=== PATIENT | male | born 1985 | race African-American/Black ===

== ENCOUNTER 2021-08-11 21:03 | Emergency (ER) | payer OTHER, SELFPAY ==
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
[2021-08-11 21:39] VITALS: BP 146/100; PULSE 75; RESP 18; TEMP 37; O2SAT 100
[2021-08-11 21:42] VITALS: PULSE 74
[2021-08-11 21:47] VITALS: BP 131/87; PULSE 80; RESP 18; O2SAT 100
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
[2021-08-11] MEDS: HYDROcodone/acetaminophen (*CRX) 5-325 MG TABLET 1 TAB PO (22:14)
[2021-08-12 00:19] VITALS: BP 127/87; PULSE 60; RESP 16; O2SAT 98
== END 2021-08-12 00:19 | disposition home or self-care (01) ==
PROVIDERS: Emergency Provider Emergency Medicine; PCP Emergency Medicine
DX: S41.032A Puncture wound without foreign body of left shoulder, initial encounter (principal); W27.2XXA Contact with scissors, initial encounter; X58.XXXA Exposure to other specified factors, initial encounter
CPT/HCPCS: 70450; 71046; 73030; 99284; A4565; A9270

== ENCOUNTER 2023-06-29 20:37 | Emergency (ER) | payer OTHER, SELFPAY ==
[2023-06-29 20:45] VITALS: BP 142/98; PULSE 88; RESP 18; TEMP 36.2; O2SAT 97
[2023-06-29 20:54] VITALS: O2SAT 98
[2023-06-29 21:29] LABS: Influenza A QL RT-PCR Negative (Negative); Influenza B QL RT-PCR Negative (Negative); RSV RNA, RT-PCR Negative (Negative); SARS-CoV-2 RNA PCR Negative (Negative)
[2023-06-29] MEDS: ACETAMINOPHEN 500 MG TABLET 1000 MG PO (22:41)
[2023-06-29] MEDS: IBUPROFEN 400 MG TABLET 800 MG PO (22:42)
--- NOTE | 2023-06-29 22:48 | ED.GENADULT ---
[facility] - General Adult General Chief complaint: Upper Respiratory Infection Stated complaint: chills, fever, aches, sore throat, cough Time Seen by Provider: 06/29/23 21:02 Source: patient Mode of arrival: ambulatory Limitations: no limitations History of Present Illness [facility] narrative: The this is a 37-year-old male who presents to the ED for chief complaint of URI symptoms for the past 2 days. Sources subjective fevers, chills, body aches, sore throat cough. Denies productive cough. Denies chest pain, shortness of breath, abdominal pain, nausea, vomiting. Related Data Allergies Allergy/AdvReac Type Severity Reaction Status Date / Time No Known Allergies Allergy Unknown Unverified 09/25/13 06:51 Review of Systems Review of Systems: All systems as dictated in [facility] Past Medical History Medical History (Updated 06/30/23 @ 00:01 by Ayaz Liu) No active medical problems Social History Social History (Updated 08/11/21 @ 21:50 by Amirah Malagon PA-C) Smoking status: Never smoker Exam Narrative: GENERAL: Well-appearing, well-nourished, and in no acute distress. HEAD: Normocephalic, atraumatic. EYES: PERRLA and EOMI. ENT: Nares clear, no rhinorrhea or epistaxis. Mucous membranes moist. Oropharynx without tonsillar hypertrophy exudate or other lesions. NECK: Supple. No adenopathy or masses. CHEST: No respiratory distress. Clear to auscultation. No wheezes rales or rhonchi HEART: Regular rate and rhythm. No murmur heard. Normal peripheral pulses. ABDOMEN: Soft, nontender, nondistended, normal active bowel sounds. MSK: Normal range of motion. No edema. SKIN: Warm, dry, no rash. NEURO: Alert and oriented x3. No focal deficits. PSYCH: Normal mood and affect. Course Vital Signs Vital signs: Vital Signs Temperature 97.1 F L 06/29/23 20:45 Pulse Rate 88 06/29/23 20:45 Respiratory Rate 18 06/29/23 20:45 Blood Pressure 142/98 H 06/29/23 20:45 Pulse Oximetry 97 06/29/23 20:45 Temperature 97.0 F L 06/29/23 23:05 Pulse Rate 80 06/29/23 23:05 Respiratory Rate 17 06/29/23 23:05 Blood Pressure 138/72 06/29/23 23:05 Pulse Oximetry 99 06/29/23 23:05 Oxygen Delivery Room Air 06/29/23 20:[address] [facility] Narrative Medical decision making narrative: This 37 M patient presents with symptoms suspicious for likely viral upper respiratory infection. Differential includes bacterial pneumonia, sinusitis, allergic rhinitis. Do not suspect underlying cardiopulmonary process. I considered, but think unlikely, dangerous causes of this patient?s symptoms to include ACS, CHF or COPD exacerbations, pneumonia, pneumothorax. Patient is nontoxic appearing and not in need of emergent medical intervention. Plan: reassurance, reassessment, over the counter medications, discharge with PCP followup Vital Signs Vital Signs: Vital Signs Temperature 97.1 F L 06/29/23 20:45 Pulse Rate 88 06/29/23 20:45 Respiratory Rate 18 06/29/23 20:45 Blood Pressure 142/98 H 06/29/23 20:45 Pulse Oximetry 97 06/29/23 20:45 Temperature 97.0 F L 06/29/23 23:05 Pulse Rate 80 06/29/23 23:05 Respiratory Rate 17 06/29/23 23:05 Blood Pressure 138/72 06/29/23 23:05 Pulse Oximetry 99 06/29/23 23:05 Oxygen Delivery Room Air 06/29/23 20:54 Lab Data Labs: Lab Results 06/29/23 Range/Units 20:47 Influenza A (RT-PCR) Negative (Negative) Influenza B (RT-PCR) Negative (Negative) RSV (RT-PCR) Negative (Negative) SARS-CoV-2 RNA (RT-PCR) Negative (Negative) Discharge Plan Discharge Clinical Impression: Upper respiratory infection Patient Disposition: Home, Self-Care Condition: Stable Instructions: Antibiotic Form, Viral Syndrome (ED) Additional Instructions: Your exam today is overall reassuring. You probably have an upper respiratory virus. This should clear out of your system in the next 7 days. Us
[2023-06-29 23:05] VITALS: BP 138/72; PULSE 80; RESP 17; TEMP 36.1; O2SAT 99
== END 2023-06-29 23:07 | disposition home or self-care (01) ==
PROVIDERS: Emergency Medicine; Emergency Provider Physician Assistant
DX: J06.9 Acute upper respiratory infection, unspecified (principal); Z20.822 Contact with and (suspected) exposure to COVID-19
CPT/HCPCS: 87637; 99283; A9270

== ENCOUNTER 2024-01-16 11:34 | Emergency (ER) | payer MEDICAID, SELFPAY ==
--- NOTE | 2024-01-16 11:35 | ED.URI ---
HPI - URI/Sore Throat General Chief Complaint: Nausea/Vomiting/Diarrhea Stated Complaint: diarrhea,sweats,dizzy,TAPIA Time Seen by Provider: 01/16/24 12:23 Source: patient and RN notes reviewed Mode of arrival: ambulatory Limitations: no limitations History of Present Illness HPI Narrative: 38-year-old male presents with concern for diarrhea, nausea, 1 episode of vomiting, headache, feeling dizzy, sore throat, runny nose. Reports symptoms started 2 days ago. Reports he is having diarrhea 4 to 7 times a day. Reports he is eating and drinking. He denies known sick contacts MD elicited complaint: sore throat and other (Vomiting and diarrhea) Related Data Allergies Allergy/AdvReac Type Severity Reaction Status Date / Time No Known Allergies Allergy Unknown Verified 01/16/24 11:38 Review of Systems Review of Systems: CONSTITUTIONAL: Reports malaise. Denies chills, sweats, or fever. EYES: Denies visual changes, redness, or discharge. ENT: Reports rhinorrhea, congestion, and sore throat. CARDIOVASCULAR: Denies chest pain, palpitations, or edema. RESPIRATORY: Reports cough. Denies dyspnea. GASTROINTESTINAL: Denies abdominal pain. Reports nausea, vomiting, diarrhea SKIN: Denies rash or itching. MUSCULOSKELETAL: Denies myalgia. NEUROLOGIC: Reports headache. All systems reviewed & are unremarkable except as noted in HPI and below PMFSH Past Medical History Medical History (Updated 01/16/24 @ 12:44 by Bev Branham NP) No active medical problems Social History Social History (Updated 08/11/21 @ 21:50 by Amirah Malagon PA-C) Smoking status: Never smoker Comments At time of signature, agree with nursing past medical, surgical, social and family history. There is no relevant family history pertinent to the presenting complaint Exam Narrative: GENERAL: Nontoxic-appearing, well-nourished, and in no acute distress. HEAD: Normocephalic EYES: PERRLA, conjunctivae clear ENT: Nares clear. Mucous membranes moist. TM pearly españa with dull light reflex bilaterally; no tragal tenderness. Oropharynx not erythematous without lesions. Tonsils not enlarged and without exudate, no drooling, no hoarseness, no trismus, uvula midline. NECK: Supple. No lymphadenopathy CHEST: Clear to auscultation, breath sounds equal. No wheezing, rhonchi, rales, or stridor. No respiratory distress, speaks in full sentences. HEART: Regular rate and rhythm. No murmur heard. SKIN: Warm, dry, no rash. NEURO: Alert and oriented x3. PSYCH: Normal mood and affect Course Course Emergency Course: Patient is aware of diagnosis, understands and agrees to treatment plan. Anticipatory guidance given. Patient agrees to follow-up as directed and is aware of reasons to seek care at the emergency department. Portions of this record may have been created with voice recognition software Level of Care: Express Care Visit Vital Signs Vital signs: Vital Signs Temperature 97.9 F 01/16/24 11:49 Pulse Rate 61 01/16/24 11:49 Blood Pressure 125/87 01/16/24 11:49 Temperature 97.9 F 01/16/24 11:49 Pulse Rate 61 01/16/24 11:49 Blood Pressure 125/87 01/16/24 11:49 Reviewed. MDM - URI/Sore Throat MDM Narrative Medical decision making narrative: Differential diagnosis considered: Alberto virus, strep pharyngitis, allergic rhinitis, upper respiratory tract infection, sinusitis, rhinosinusitis, nasopharyngitis. viral pharyngitis, otitis media, otitis externa, pneumonia, bronchitis, viral cough syndrome, viral syndrome, and influenza. Exam findings show no acute concerns or changes; patient is non-toxic appearing and is in no distress. Patient is appropriate for outpatient treatment and follow-up. Lab Data Attestation: I reviewed the patient's lab results. Labs: Lab Results 01/16/24 01/16/24 Range/Units 12:22 12:30 POC Influenza A Ag Negative (Negative) POC Influenza B Ag Negative (Negative) POC SARS CoV-2 Ag Neg
[2024-01-16 11:49] VITALS: BP 125/87; PULSE 61; TEMP 36.6
[2024-01-16 14:31] LABS: EDCOVIDSCREEN Negative (Negative); EDINFLUASCREEN Negative (Negative); EDINFLUBSCREEN Negative (Negative)
[2024-01-16 14:31] LABS: EDSTREPNEGPOS1 Negative (Negative)
== END 2024-01-16 12:55 | disposition home or self-care (01) ==
PROVIDERS: Emergency Provider Nurse Practitioner
DX: B34.9 Viral infection, unspecified (principal); Z20.822 Contact with and (suspected) exposure to COVID-19
CPT/HCPCS: 87081; 87426; 87804; 87880; 99213; G0463

== ENCOUNTER 2024-08-23 23:45 | Emergency (ER) | payer MEDICAID, SELFPAY ==
--- NOTE | ~2024-08-23 | US_ITS ---
Testicular ultrasound with doppler. Indication: Testicular pain. Technique: Real-time sonography the scrotum was performed. Color flow Doppler and Doppler spectral an alysis were performed. Findings: The testes are homogeneous in echotexture bilaterally. There is no evidence of an intrates ticular mass. The right testis measures 4.4 x 2.2 x 2.9 cm and the left 3.5 x 2.3 x 3.1 cm. There is color-flow seen to both testes. Arterial and venous spectral waveforms are seen in both testes. There is no sonographic evidence of torsion. There is relative hypervascularity of the left testis an epid idymis as compared to the right, compatible with epididymoorchitis. Impression: Findings compatible with left epididymoorchitis. No evidence for torsion or mass. Reviewed, dictated and finalized at [facility]. Impression: Findings compatible with left epididymoorchitis. No evidence for torsion or mass.
--- OUTSIDE RECORDS SUMMARY | 2024-08-23 23:48 | XMS_ITS | Clinical Summary ---
Author Organization [facility] Address [address] [place] [address] Care Team Providers Care Geological Specialist Name Role Phone Can Gongora NP Primary Care Provider [phone]- [phone] Allergies No known active allergies Medications diazePAM (VALIUM) 10 mg tablet Take 1 tablet (10 mg total) by mouth once as needed for anxiety Take 30 minutes prior to anticipated procedure. 1 tablet 5 Active ibuprofen (ADVIL,MOTRIN) 600 mg tablet Take 1 tablet (600 mg total) by mouth every 8 (eight) hours as needed for pain 20 tablet 1 5 Active oxyCODONE (ROXICODONE) 5 mg immediate release tabletIndicatio ns:Pain Take 1 tablet (5 mg total) by mouth every 8 (eight) hours as needed for pain 5 tablet 5 Active Active Problems Problem Noted Date Diagnosed Date Vasectomy evaluation 06/04/2024 Overview (07/16/2024): 06/04/24: NC. Vasectomy evaluation. 07/16/24: RP. Vasectomy. Encounters Date Type Department Care Team Description 07/16/2024 3:00 PM CDT Office Visit [facility] U[facility] Medical Office Building [address] [place] [address] Damir Mcguire MD Vasectomy evaluation (Primary Dx) 06/04/2024 10:00 AM CONSTRUCTION PERSON Office Visit [facility] Urology [address] [facility] Medical Office Building [address] [place] [address] Damir Mcguire MD Vasectomy evaluation (Primary Dx) from Last 3 Months Social History Tobacco Use Types Packs/Day Years Used Date Smoking Tobacco: Unknown Tobacco Cessation:Counseling Given: Not Answered Sex and Gender Information Value Date Recorded Sex Assigned at Not on file Legal Sex Male 4:52 PM CONSTRUCTION PERSON Gender Identity Not on file Sexual Orientation Not on file Obstetrics History Plan of Treatment Health Maintenance Due Date Last Done Comments Depression Screening 1987 Hepatitis C Screening 1987 DTaP/Tdap/Td Vaccine (1 - Tdap) 07/13/2000 1 Varicella Vaccines (2 of 2 - 2-dose childhood series) 10/04/2000 07/12/2000 Hepatitis B Screening 08/27/2005 Regular Well Visit/Exam 18-64 08/27/2005 Influenza Vaccine (#1) 2023 HPV Vaccines Aged Out No longer eligi ble based on patient's age to complete this topic Pneumococcal vaccine <65 Aged Out No longer eligible based on patient's age to complete this [place] [address] [place] [address] [facility] [place] [address] [place] [address] Care Teams Geological Specialist Relationship Specialty Start Date End Date Can Gongora NP [address] [place] [address] PCP - General Pain Management 04/24/24
--- OUTSIDE RECORDS SUMMARY | 2024-08-23 23:48 | XMS_ITS | Referral Summary ---
Author Organization [facility] Address [address] [place] [id number] Care Team Providers Care Milk Route Supervisor Name Role Phone Can Gongora NP Primary Care Provider +1- [phone] Encounters Date Type Department Care Team Description 07/16/2024 3:00 PM CDT Office Visit [facility] Urology [address] [place] [address] Medical Office Building [address] [address] Damir Mcguire MD Vasectomy evaluation (Primary Dx) 06/04/2024 10:00 AM SYSTEM CONTROLLER Office Visit [facility] Urology [address] [place] [address] [address] Damir Mcguire MD Vasectomy evaluation (Primary Dx) from Last 3 Months Allergies No known active allergies Medications diazePAM [...] 06/04/24: NC. Vasectomy evaluation. 07/16/24: RP. Vasectomy. Social History Tobacco Use Types Packs/Day Years Used Date Smoking Tobacco: Unknown Tobacco Cessation:Counseling Given: Not Answered Sex and Gender Information Value Date Recorded Sex Assigned at Not on file Legal Sex Male 4:52 PM SYSTEM CONTROLLER Gender Identity Not on file Sexual Orientation Not on file Plan of Treatment Not on [place] [address] [address] [facility] [place] [address] Care Teams Milk Route Supervisor Relationship Specialty Start Date End Date Can Gongora NP [address] [place] [address] [place] [address] PCP - General Pain Management 04/24/24
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
--- OUTSIDE RECORDS SUMMARY | 2024-08-23 23:48 | XMS_ITS | Patient Health Record ---
Author Organization [facility] Address [address] [place] [address] Care Team Providers Care Client Service Executive Name Role Phone Can Gongora Primary Care Provider Remington Sneed [phone] Allergies No Known Allergies Results Component Value Reference Range Notes CMP 14 Comprehensive Metabol ic Panel* Reviewed date:12/28/2023 11:44:50 AM Interpretation: Performing Lab:[facility] [place], [address] [facility], [place], Phone - [phone], Director - Ricdee Notes/Report: Glucose 106 70-99 mg/dL BUN 14 6-20 mg/dL Creatinine 1.01 0.76-1.27 mg/dL eGFR 99 >59 mL/min/1.73 BUN/Creatinine Ratio 14 9-20 Sodium 138 134-144 mmol/L Potassium 4.5 3.5-5.2 mmol/L Chloride 100 96-106 mmol/L Carbon Dioxide, Total 23 20-29 mmol/L Calcium 10.1 8.7-10.2 mg/dL Protein, Total 7.9 6.0-8.5 g/dL Albumin 4.8 4.1-5.1 g/dL Globulin, Total 3.1 1.5-4.5 g/dL Bilirubin, Total 0.4 0.0-1.2 mg/dL Alkaline Phosphatase 96 44-121 IU/L AST (SGOT) 45 0-40 IU/L ALT (SGPT) 67 0-44 IU/L Lipid Panel* Reviewed date:12/28/2023 11:44:50 AM Interpretation: Performing Lab:[facility] [place], [address] [place] [address], Phone - [phone], Director - [facility] Notes/Report: Cholesterol, Total 237 100-199 mg/dL Triglycerides 124 0-149 mg/dL HDL Cholesterol 80 >39 mg/dL VLDL Cholesterol Lee 21 5-40 mg/dL LDL Chol Calc (NIH) 136 0-99 mg/dL TSH+Free T4* Reviewed date:12/28/2023 11:44:50 AM Interpretation: Performing Lab:[facility] [place], [address] [place] [address], Phone - [phone], Director - [facility] Notes/Report: TSH 1.730 0.450-4.500 uIU/mL T4,Free(Direct) 1.34 0.82-1.77 ng/dL CBC With Differential/Platel et* Reviewed date:12/28/2023 11:44:50 AM Interpretation: Performing Lab:[facility] [place], [address] [place] [address], Phone - [phone], Director - [facility] Notes/Report: WBC 6.6 3.4-10.8 x10E3/uL RBC 5.32 4.14-5.80 x10E6/uL Hemoglobin 15.4 13.0-17.7 g/dL Hematocrit 47.4 37.5-51.0 % MCV 89 79-97 fL MCH 28.9 26.6-33.0 pg MCHC 32.5 31.5-35.7 g/dL RDW 13.4 11.6-15.4 % Platelets 302 150-450 x10E3/uL Neutrophils 61 Not Estab. % Lymphs 29 Not Estab. % Monocytes 7 Not Estab. % Eos 2 Not Estab. % Basos 1 Not Estab. % Neutrophils (Absolute) 4.0 1.4-7.0 x10E3/uL Lymphs (Absolute) 1.9 0.7-3.1 x10E3/uL Monocytes(Absolute) 0.5 0.1-0.9 x10E3/uL Eos (Absolute) 0.1 0.0-0.4 x10E3/uL Baso (Absolute) 0.1 0.0-0.2 x10E3/uL Immature Granulocytes 0 Not Estab. % Immature Grans (Abs) 0.0 0.0-0.1 x10E3/uL Hemoglobin A1c* Reviewed date:12/28/2023 11:44:50 AM Interpretation: Performing Lab:[facility] [place], [address] [facility], Phone - [phone], Director - [facility] Notes/Report: Hemoglobin A1c 6.4 4.8-5.6 % . Prediabetes: 5.7 - 6.4 Diabetes: >6.4 Glycemic control for adults with diabetes: <7.0 HIV Screen *HIV 1, 2 Ab, p24 Ag (980354) Reviewed date:12/28/2023 11:44:50 AM Interpretation: Performing Lab:[facility] [place], [address] [facility], [place], Phone - [phone], Director - [facility] Notes/Report: HIV Ab/p24 Ag Screen Non Reactive Non Reactive HIV-1/HIV-2 antibodies and HIV-1 p24 antigen were NOT detected. There is no laboratory evidence of HIV infection. HIV Negative Hemoglobin A1c CLIA Waived Reviewed date:03/29/2024 01:09:21 PM Interpretation: Performing Lab: Notes/Report: Hemoglobin A1c 5.9 4.0 - 6.4 % Reason For Referral Reason Would like vasectomy Diagnosis 1 Screening and evalua tion for vasectomy (Z30.09) Referral Organization [facility] Referring Provider First Name Can Referring Provider Last Name Gongora Referring Provider [facility] Referred Provider [facility] Referred Provider Specialty Urology General Notes Pt has Simi., [place] Teri sherman RN 04/06/2024 11:39:05 AM >referral faxed to [facility] at the fax number provided by [facility] construction representativeTalya.Kelin RN, Stephanie N 04/06/2024 01:06:38 PM >fax failed. Referral refaxed.Kelin RN, Stephanie N 04/13/2024 09:08:48 AM >Fax number updated. Referral refaxed.Kelin RN, Stephanie N 04/13/2024 09:27:30 AM >Fax was successful. Letter mailed with referral details. Clinical Notes [facility] , [address], [address], [place] [address], , New Patients: [phone], Referral Referral Priority Routine Social History Tobacco Use: Social History Observation Description Date Details (start date - stop date) Never Smoker NA - NA Sex Assigned At : Social History Observation Description Sex Assigned At Male PRAPARE Question Answer Notes Date Completed/Updated: 08/07/2024 What is your current housing situation? I have h ousing Are you worried about losing your housing? No What is the highest level of school that you have finished? 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 Check all that apply I do not have problems meeting my needs Has lack of transportation k ept you from medical appointments, meetings, work or from getting things needed for daily living? No How often do you see or talk to people that you care about and feel close to? (For example: talking to friends on the phone, visiting friends or family, going to synagogue or club meetings) 1 or 2 times a week How stressed are you? Stress is when someone feels tense, nervous, anxious, or can\t sleep at night because their mind is troubled A little bit In the past year have you sp ent more than 2 nights in a row in a group home, custodial, senior living center, or juvenile correctional facility? No Are you a refugee? No What country are you from? [place] Do you feel physically and e motionally safe where you currently live? Yes In the past year, have you b een afraid of your partner or ex-partner? No PRAPARE Score: 6 Tobacco Control (Standard) Question Answer Notes Tobacco use: Nonsmoker Problems Problem Type SNOMED Code ICD Code Onset Dates Problem Status W/U Status Risk Notes Problem 861162255 Obesity (BMI 30-39.9) (E66.9) Active confirmed Vital Signs Heart Rate 67 /min 03/27/2024 Respiratory Rate 16 /min 03/27/2024 Blood pressure diastolic 70 mm Hg 03/27/2024 Oximetry 97 % 03/27/2024 Height 71 in 03/27/2024 Blood pressure systolic 128 mm Hg 03/27/2024 Weight 257 lbs 03/27/2024 BMI 35.84 kg/m2 03/27/2024 Encounters Encounter Location Date Provider Diagnosis [address] [address] 12/22/2023 Can Gongora Screening for HIV (human immunodeficiency virus) Z11.4 ; Screening for metabolic disorder Z13.228 ; Screening for deficiency anemia Z13.0 and Lipid screening Z13.[address] [address] 12/15/2023 Can Gongora Encounter to [facility] Z76.89 ; Screening for deficiency anemia Z13.0 ; Screening for metabolic disorder Z13.228 ; Screening for HIV (human immunodeficiency virus) Z11.4 ; Lipid screening Z13.220 ; Obesity (BMI 30-39.9) E66.9 and Nutritional counseling Z71.[address] [address] 12/22/2023 Can Gongora [address] [address] 03/27/2024 Can Gongora Screening and evaluation for vasectomy Z30.09 ; Prediabetes R73.03 ; Obesity (BMI 30-39.9) E66.9 and Nutritional counseling Z71.[address] [address] 03/27/2024 Can Gongora [address] [address] 04/27/2024 Can Gongora [address] [address] 07/12/2024 Remington Sneed [address] [address] 08/08/2024 Remington Sneed Assessments Encounter Date Diagnosis (ICD Code) Assessment Notes Treatment Notes Treatment Clinical Notes Section Notes 12/15/2023 Encounter to establish care (ICD-10 - Z76.89) 12/15/2023 Screening for deficiency anemia (ICD-10 - Z13.0) 12/22/2023 Screening for HIV (human immunodeficiency virus) (ICD-10 - Z11.4) 03/27/2024 Prediabetes (ICD-10 - R73.03) 03/27/2024 Screening and evaluation for vasectomy (ICD-10 - Z30.09) 12/15/2023 Screening for metabolic disorder (ICD-10 - Z13.228) 03/27/2024 Obesity (BMI 30-39.9) (ICD-10 - E66.9) 12/22/2023 Screening for metabolic disorder (ICD-10 - Z13.228) 12/22/2023 Screening for deficiency anemia (ICD-10 - Z13.0) 12/15/2023 Screening for HIV (human immunodeficiency virus) (ICD-10 - Z11.4) 03/27/2024 Nutritional counseling (ICD-10 - Z71.3) 12/15/2023 Lipid screening (ICD-10 - Z13.220) 12/22/2023 Lipid screening (ICD-10 - Z13.220) 12/15/2023 Obesity (BMI 30-39.9) (ICD-10 - E66.9) 12/15/2023 Nutritional counseling (ICD-10 - Z71.3) Plan Of Treatment No Information Insurance Providers Payer Name Payer Address Payer Phone Subscriber Number Group Number Insured Name Patient Relationship to Insured Coverage Start Date Coverage End Date MEDICAID [address] [place] [phone] [id number] Cj Massey Self - patient is the insured
[2024-08-23 23:50] VITALS: BP 134/74; PULSE 72; RESP 18; TEMP 36.8; O2SAT 99
--- OUTSIDE RECORDS SUMMARY | 2024-08-24 00:52 | XMS_ITS | Referral Summary ---
Author Organization [facility] Address [address] [place] [address] Care Team Providers Care Closer On Name Role Phone Can Gongora NP Primary Care Provider +1- [phone] Encounters Date Type Department Care Team Description 07/16/2024 3:00 PM CDT Office Visit [facility] Urology [address] [place] [address] Medical Office Building [address] [address] Damir Mcguire MD Vasectomy evaluation (Primary Dx) 06/04/2024 10:00 AM FEATHER BONER Office Visit [facility] Urology [address] [place] [address] [address] Damir Mcguire MD Vasectomy evaluation [...] on file Legal Sex Male 4:52 PM FEATHER BONER Gender Identity Not on file Sexual Orientation Not on file Plan of Treatment Not on [place] [id number] [facility] [place] [address] Care Teams Closer On Relationship Specialty Start Date End Date Can Gongora NP [address] [place] [address] [place] [address] PCP - General Pain Management 04/24/24
--- OUTSIDE RECORDS SUMMARY | 2024-08-24 00:52 | XMS_ITS | Clinical Summary ---
Author Organization [facility] Address [address] [place] [address] Care Team Providers Care Trim Stencil Maker Name Role Phone Can Gongora NP Primary Care Provider +1- [phone] Allergies No known active allergies Medications diazePAM [...] Description 07/16/2024 3:00 PM CDT Office Visit [facility] U[facility] Medical Office Building [address] [place] [address] Damir Mcguire MD Vasectomy evaluation (Primary Dx) 06/04/2024 10:00 AM GARMENT PARTS CUTTER MACHINE Office Visit [facility] Urology [address] [facility] Medical Office Building [address] [place] [address] Damir Mcguire MD Vasectomy evaluation (Primary Dx) from Last 3 Months Social History Tobacco Use Types Packs/Day Years Used Date Smoking Tobacco: Unknown Tobacco Cessation:Counseling Given: Not Answered Sex and Gender Information Value Date Recorded Sex Assigned at Not on file Legal Sex Male 4:52 PM GARMENT PARTS CUTTER MACHINE Gender Identity Not on file Sexual Orientation [...] complete this [place] [address] [facility] [place] [address] Care Teams Trim Stencil Maker Relationship Specialty Start Date End Date Can Gongora NP [address] [place] [address] PCP - General Pain Management 04/24/24
--- OUTSIDE RECORDS SUMMARY | 2024-08-24 00:52 | XMS_ITS | Continuity of Care Document ---
Author Organization [facility] Address [address] [place] [address] Phone Care Team Providers Care Vice President Of Talent Management Name Role Phone Felix Jo MD Unavailable Unavailable Allergies, Adverse Reactions, Alerts Substance Reaction Status Criticality No Known Allergies Active No Inform ation Procedures Procedure Date PREV VISIT, NEW, AGE 18-39 Advance Directives Directive Yes / No Effective Date File Name No Information Encounters Encounter Description Practice Location Reason(s) For Visit Diagnoses Date Provider Providers Copied on Encounter PREV VISIT, NEW, AGE 18-39 [facility], [address] [facility] [place], [id number], [place] tel:[phone] [facility] Physical (chief complaint) Dietary surveillance and counselingRoutine Medical ExamRoutine Medical Exam [address]. [address], [facility] [place], [id number] , [place]. tel:[phone] Family History Family Member Type Diagnosis Age At Onset Brother Problem (finding) Alive and well Mother Problem (finding) Alive and well Father Problem (finding) Alive and well Payers Payer name Insurance type Covered green party ID Authoriza tion(s) No Information Social [...] Mental Status Date Cognitive Assessment Orientation - [place] ed to time, place, person, situation.
[2024-08-24] MEDS: HYDROcodone/acetaminophen (*CRX) 5-325 MG TABLET 1 TAB PO (01:47)
[2024-08-24 02:07] LABS: Add Urine Microscopic? NO; Appearance Urine Clear (Clear); Bilirubin Urine Negative (Negative); Blood Urine Negative (Negative); Color Urine Yellow (Yellow); Glucose Urine UA Negative (Negative); Ketones Urine Trace mg/dL (Negative); Leukocyte Esterase Ur Negative LEU/UL (Negative); Nitrate Urine Negative (Negative); Protein Urine Negative (Negative); Specific Grav Ur 1.033 (1.001-1.035); pH Urine 5.5 (5.0-9.0)
[2024-08-24 03:00] VITALS: BP 138/64; PULSE 69; RESP 18; O2SAT 99
--- NOTE | 2024-08-24 03:20 | ED_ITS ---
HPI - Male Genitourinary General Chief complaint: Urogenital-Male Stated complaint: groin swelling Time Seen by Provider: 08/24/24 00:36 Source: patient Mode of arrival: ambulatory Limitations: no limitations History of Present Illness HPI Narrative: 38-year-old here with a complains of left testicular pain and swelling for past few days. Patient states the pain got worse this evening. He denies any trauma. Patient states that he had a vasectomy done a month ago in [place]. No history of fever or chills. Denies urinary symptoms. Complaint: testicle pain Onset (ago): day(s) (4) Location: left testicle Severity: moderate Quality: aching Relieving factors: none Exacerbating factors: none Associated symptoms: Reports denies other symptoms Related Data Allergies Allergy/AdvReac Type Severity Reaction Status Date / Time No Known Allergies Allergy Unknown Verified 08/24/24 00:42 Review of Systems Review of Systems: All systems reviewed & are unremarkable except as noted in HPI and below Constitutional: Constitutional: Reports no additional constitutional complaints Eyes: Eyes: Reports no additional eye complaints ENT: Reports system reviewed and no additional complaints, except as documented Cardiovascular: Cardiovascular: Reports no additional cardiovascular complai nts Respiratory: Respiratory: Reports no additional respiratory complaints Gastrointestinal: Gastrointestinal: Reports no additional gastrointestinal complaints Genitourinary: Genitourinary: Reports as per HPI Musculoskeletal: Musculoskeletal: Reports no additional musculoskeletal complaints Neurologic: Reports system reviewed and no additional complaints, except as documented PMFSH Past Medical History Medical History No active medical problems Social History Social History Smoking status: Never smoker Exam Narrative: GENERAL: Well-appearing, well-nourished, and in no acute distress. HEAD: Normocephalic, atraumatic. EYES: PERRLA and EOMI. ENT: Nares clear, no rhinorrhea or epistaxis. Mucous membranes moist. NECK: Supple. CHEST: Clear to auscultation. No respiratory distress. HEART: Regular rate and rhythm. No murmur heard. Normal peripheral pulses. ABDOMEN: Soft, nontender, nondistended, normal active bowel sounds. left testicle is soft , tender , Right is normal EXTREMITIES: Normal range of motion. No edema. SKIN: Warm, dry, no rash. NEURO: No focal deficits. Alert and oriented x3. PSYCH: Normal mood and affect. Course Course Emergency Course: pain has improved hydrocodone , informed him about the US findings, advised him to take antibiotic as prescribed. Vital Signs Vital signs: Vital Signs Temperature 36.8 C 08/23/24 23:50 Pulse Rate 72 08/23/24 23:50 Respiratory Rate 18 08/23/24 23:50 Blood Pressure 134/74 08/23/24 23:50 Pulse Oximetry 99 08/23/24 23:50 Oxygen Delivery Room Air 08/23/24 23:50 Temperature 36.8 C 08/23/24 23:50 Pulse Rate 72 08/23/24 23:50 Respiratory Rate 18 08/23/24 23:50 Blood Pressure 134/74 08/23/24 23:50 Pulse Oximetry 99 08/23/24 23:50 Oxygen Delivery Room Air 08/23/24 23:50 MDM - Male Genitourinary Differential Diagnosis Differential diagnosis: Likely urinary tract infection, urethritis and epididymitis Medical Records Attestation: I reviewed the patient's medical records. Lab Data Attestation: I reviewed the patient's lab results. Labs: Lab Results 08/24/24 Range/Units 01:48 Urine Color Yellow (Yellow) Urine Appearance Clear (Clear) Urine pH 5.5 (5.0-9.0) Ur Specific Somis 1.033 (1.001-1.035) Urine Protein Negative (Negative) mg/dL Urine Glucose (UA) Negative (Negative) mg/dL Urine Ketones Trace H (Negative) mg/dL Ur Blood (Man) Negative (Negative) Urine Nitrate Negative (Negative) Urine Bilirubin Negative (Negative) Urine Urobilinogen 1.0 (<2.0) mg/dL Leukocyte Esterase Rfl Negative (Negative) SALUD/UL Imaging Data Radiologist's impression: Ultrasound of the scrotum shows findings suggestive of left epididymitis question left-sided orchitis. Small right hydrocele Discharge Plan Discharge Clinical Impression: Epididymitis Patient Disposition: Home Condition: Stable Instructions: Antibiotic Form, Epididymitis (ED) Patient Language: Chinese Prescriptions: New ciprofloxacin HCl [Cipro] 500 mg tablet 500 mg PO Q12H Qty: 14 0RF hydrocodone-acetaminophen 5-325 mg tablet 1 tablet PO Q6H PRN (Reason: pain) Qty: 14 0RF No Action ondansetron 4 mg tablet,disintegrating 4 mg PO Q8H PRN (Reason: nausea and vomiting) Qty: 10 0RF Follow-up/Referrals: PHYSICIAN,AUTO REPAIR SHOP MANAGER [Primary Care Provider] - Time of Disposition: 03:27
== END 2024-08-24 03:40 | disposition home or self-care (01) ==
PROVIDERS: Emergency Provider Family Medicine
DX: N45.1 Epididymitis (principal)
CPT/HCPCS: 76870; 81003; 93976; 99284; A9270

== ENCOUNTER 2024-08-27 23:36 | Emergency (ER) | payer MEDICAID, SELFPAY ==
--- NOTE | ~2024-08-27 | US_ITS ---
Testicular ultrasound with doppler. Indication: Torsion. Technique: Real-time sonography the scrotum was performed. Color flow Doppler and Doppler spectral an alysis were performed. Findings: The testes are homogeneous in echotexture bilaterally. There is no evidence of an intrates ticular mass. The right testis measures 4.2 x 2.5 x 3.0 cm and the left 4.2 x 2.3 x 3.0 cm. There is color-flow seen to both testes. Arterial and venous spectral waveforms are seen in both testes. There is no sonographic evidence of torsion. There is hypervascularity of the left testis and left epididy mis, compatible with epididymoorchitis. There is diffuse scrotal soft tissue edema/thickening.. Impression: Left epididymoorchitis. Diffuse scrotal soft tissue edema/thickening. Reviewed, dictated and finalized at [facility]. Impression: Left epididymoorchitis. Diffuse scrotal soft tissue edema/thickening.
--- OUTSIDE RECORDS SUMMARY | 2024-08-27 23:38 | XMS_ITS | Continuity of Care Document ---
Author Organization [facility] Address [address] [place] [address] Phone Care Team Providers Care Egg Producer Name Role Phone Felix Jo MD Unavailable Unavailable Allergies, Adverse Reactions, Alerts Substance Reaction Status Criticality No Known Allergies Active No Inform ation Procedures Procedure Date PREV VISIT, NEW, AGE 18-39 Advance Directives Directive Yes / No Effective Date File Name No Information Encounters Encounter Description Practice Location Reason(s) For Visit Diagnoses Date Provider Providers Copied on Encounter PREV VISIT, NEW, AGE 18-39 [facility], [address] [facility] [place], [id number], [place] tel:[phone] [facility] Physical (chief complaint) Dietary surveillance and counselingRoutine Medical ExamRoutine Medical Exam [address]. [address], [facility] [place], [id number] , [place]. tel:[phone] Family History Family Member Type Diagnosis Age At Onset Brother Problem (finding) Alive and well Mother Problem (finding) Alive and well Father Problem (finding) Alive and well Payers Payer name Insurance type Covered republican ID Authoriza tion(s) No Information Social History [...] Mental Status Date Cognitive Assessment Orientation - [place] ed to time, place, person, situation.
--- OUTSIDE RECORDS SUMMARY | 2024-08-27 23:38 | XMS_ITS | Clinical Summary ---
Author Organization [facility] Address [address] [place] [address] Care Team Providers Care Nut Chopper Name Role Phone Can Gongora NP Primary Care Provider +1- [phone] Allergies No known active allergies Medications diazePAM [...] Description 07/16/2024 3:00 PM CDT Office Visit [facility] Urology [facility] Medical Office Building [address] [place] [address] Damir Mcguire MD Vasectomy evaluation (Primary Dx) 06/04/2024 10:00 AM DATA MODELING ARCHITECT Office Visit [facility] Urology [address] [facility] Medical Office Building [address] [place] [address] Damir Mcguire MD Vasectomy evaluation (Primary Dx) from Last 3 Months Social History Tobacco Use Types Packs/Day Years Used Date Smoking Tobacco: Unknown Tobacco Cessation:Counseling Given: Not Answered Sex and Gender Information Value Date Recorded Sex Assigned at Not on file Legal Sex Male 4:52 PM DATA MODELING ARCHITECT Gender Identity Not on file Sexual Orientation [...] complete this [place] [phone] [facility] [phone] Care Teams Nut Chopper Relationship Specialty Start Date End Date Can Gongora NP [address] [place] [address] PCP - General Pain Management 04/24/24
--- OUTSIDE RECORDS SUMMARY | 2024-08-27 23:38 | XMS_ITS | Referral Summary ---
Author Organization [facility] Address [address] [place] [address] Care Team Providers Care Network Relay Tester Name Role Phone Can Gongora NP Primary Care Provider +1- [phone] Encounters Date Type Department Care Team Description 07/16/2024 3:00 PM CDT Office Visit [facility] Urology [address] [place] [address] Medical Office Building [address] [address] Damir Mcguire MD Vasectomy evaluation (Primary Dx) 06/04/2024 10:00 AM GENERAL PRACTITIONER Office Visit [facility] Urology [address] [place] [address] [address] Damir Mcguire MD Vasectomy evaluation [...] on file Legal Sex Male 4:52 PM GENERAL PRACTITIONER Gender Identity Not on file Sexual Orientation Not on file Plan of Treatment Not on [place] [address] [facility] [place] [address] Care Teams Network Relay Tester Relationship Specialty Start Date End Date Can Gongora NP [address] [place] [address] [place] [address] PCP - General Pain Management 04/24/24
--- OUTSIDE RECORDS SUMMARY | 2024-08-27 23:39 | XMS_ITS | Patient Health Record ---
Author Organization [facility] Address [address] [place] [address] Care Team Providers Care Freight Elevator Erector Name Role Phone GongoraDanielCan Primary Care Provider [phone], Remington Santacruz [phone] Allergies No Known Allergies Results Component Value Reference Range Notes Hemoglobin A1c CLIA Waived Reviewed date:03/29/2024 01:09:21 PM Interpretation: Performing Lab: Notes/Report: Hemoglobin A1c 5.9 4.0 - 6.4 % HIV Screen *HIV 1, 2 Ab, p24 Ag ([id number]) Reviewed date:12/28/2023 11:44:50 AM Interpretation: Performing Lab:[facility], [address] [facility], Phone - [phone], Director - PhDJadiel Notes/Report: HIV Ab/p24 Ag Screen Non Reactive Non Reactive HIV-1/HIV-2 antibodies and HIV-1 p24 antigen were NOT detected. There is no laboratory evidence of HIV infection. HIV Negative Hemoglobin A1c* Reviewed date:12/28/2023 11:44:50 AM Interpretation: Performing Lab:[facility], [address] [facility], [place], Phone - [phone], Director - PhDLavellei Notes/Report: Hemoglobin A1c 6.4 4.8-5.6 % . Prediabetes: 5.7 - 6.4 Diabetes: >6.4 Glycemic control for adults with diabetes: <7.0 CBC With Differential/Platel et* Reviewed date:12/28/2023 11:44:50 AM Interpretation: Performing Lab:[facility], [address] [place] [address], Phone - [phone], Director - PhDEmerson Hospitalamanda Notes/Report: WBC 6.6 3.4-10.8 x10E3/uL RBC 5.32 [...] % Immature Grans (Abs) 0.0 0.0-0.1 x10E3/uL TSH+Free T4* Reviewed date:12/28/2023 11:44:50 AM Interpretation: Performing Lab:[facility] [address], Phone - [phone], Director - [facility] Notes/Report: TSH 1.730 0.450-4.500 uIU/mL T4,Free(Direct) 1.34 0.82-1.77 ng/dL Lipid Panel* Reviewed date:12/28/2023 11:44:50 AM Interpretation: Performing Lab:[facility] [address], Phone - [phone], Director - [facility] Notes/Report: Cholesterol, Total 237 100-199 mg/dL Triglycerides 124 0-149 mg/dL HDL Cholesterol 80 >39 mg/dL VLDL Cholesterol Lee 21 5-40 mg/dL LDL Chol Calc ([facility]) 136 0-99 mg/dL CMP 14 Comprehensive Metabol ic Panel* Reviewed date:12/28/2023 11:44:50 AM Interpretation: Performing Lab:[facility] [place], [address] [facility], [place], Phone - [phone], Director - Marli Notes/Report: Glucose 106 70-99 mg/dL BUN 14 [...] 0-40 IU/L ALT (SGPT) 67 0-44 IU/L Reason For Referral Reason Would like vasectomy Diagnosis 1 Screening and evalua tion for vasectomy (Z30.09) Referral Organization [facility] Referring Provider First Name Can Referring Provider Last Name Rolan Referring Provider [facility] Referred Provider [facility] Referred Provider Specialty Urology General Notes Pt has [place] Teri sherman RN 04/06/2024 11:39:05 AM >referral faxed to [facility] at the fax number provided by [facility] clearance representativeTalya.Kelin RN, Stephanie N 04/06/2024 01:06:38 PM >fax failed. Referral refaxed.Kelin RN, Stephanie N 04/13/2024 09:08:48 AM >Fax number updated. Referral refaxed.Kelin RN, Stephanie N 04/13/2024 09:27:30 AM >Fax was successful. Letter mailed with referral details. 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 Stress is when someone feels tense, nervous, anxious, or can\t sleep at night because their mind is troubled A little bit In the past year have you sp ent more than 2 nights in a row in a intermediate, custodial, custodial center, or juvenile correctional facility? No Are [...] Problem Status W/U Status Risk Notes Problem [id number] Obesity (BMI 30-39.9) (E66.9) Active confirmed Vital Signs Heart Rate 67 /min 03/27/2024 Respiratory Rate 16 /min 03/27/2024 Oximetry 97 % 03/27/2024 Blood pressure diastolic 70 mm Hg 03/27/2024 Height 71 in 03/27/2024 Blood pressure systolic 128 mm Hg 03/27/2024 Weight 257 lbs 03/27/2024 BMI 35.84 kg/m2 03/27/2024 Encounters Encounter Location Date Provider Diagnosis [address] [address] 12/22/2023 Can Gongora Screening for HIV (human immunodeficiency virus) Z11.4 ; Screening for metabolic disorder Z13.228 ; Screening for deficiency anemia Z13.0 and Lipid screening Z13.[address] [address] 12/15/2023 [address]ong[address] Encounter to [facility] Z76.89 ; Screening for deficiency anemia Z13.0 ; Screening for metabolic disorder Z13.228 ; Screening for HIV (human immunodeficiency virus) Z11.4 ; Lipid screening Z13.220 ; Obesity (BMI 30-39.9) E66.9 and Nutritional counseling Z71.[address] [address] 12/22/2023 Can Gongora [address] [address] 03/27/2024 Can Gongora Screening and evaluation for vasectomy Z30.09 ; Prediabetes R73.03 ; Obesity (BMI 30-39.9) E66.9 and Nutritional counseling Z71.[address] [address] 03/27/2024 Can Gongora [address] [address] 04/27/2024 Can Gongora [address] [address] 07/12/2024 Remington Sneed [address] [address] 08/08/2024 Remington Sneed Assessments Encounter Date Diagnosis [...] Date MEDICAID [address] [place] [address] [id number] Cj Massey Self - patient is the insured
[2024-08-27 23:40] VITALS: BP 165/110; PULSE 66; RESP 15; TEMP 36.6; O2SAT 99
--- OUTSIDE RECORDS SUMMARY | 2024-08-28 00:04 | XMS_ITS | Clinical Summary ---
Author Organization [facility] Address [address] [place] [address] Care Team Providers Care Log Handling Equipment Operator Name Role Phone Can Gongora NP Primary Care Provider +1- [phone] Allergies No known active allergies Medications diazePAM [...] Description 07/16/2024 3:00 PM CDT Office Visit [facility] Medical Office Building [address] [place] [address] Damir Mcguire MD Vasectomy evaluation (Primary Dx) 06/04/2024 10:00 AM HOG SAWYER Office Visit [facility] [address] [facility] Medical Office Building [address] [place] [address] Damir Mcguire MD Vasectomy evaluation (Primary Dx) from Last 3 Months Social History Tobacco Use Types Packs/Day Years Used Date Smoking Tobacco: Unknown Tobacco Cessation:Counseling Given: Not Answered Sex and Gender Information Value Date Recorded Sex Assigned at Not on file Legal Sex Male 4:52 PM HOG SAWYER Gender Identity Not on file Sexual Orientation [...] this [place] [address] [facility] [place] [address] Care Teams Log Handling Equipment Operator Relationship Specialty Start Date End Date Can Gongora NP [address] [place] [address] PCP - General Pain Management 04/24/24
--- OUTSIDE RECORDS SUMMARY | 2024-08-28 00:04 | XMS_ITS | Continuity of Care Document ---
Author Organization [facility] Address [address] [address] [place] [address] Phone Care Team Providers Care Mandarin Chinese Teacher Name Role Phone Felix Jo MD Unavailable Unavailable Allergies, Adverse Reactions, Alerts Substance Reaction Status Criticality No Known Allergies Active No Inform ation Procedures Procedure Date PREV VISIT, NEW, AGE 18-39 Advance Directives Directive Yes / No Effective Date File Name No Information Encounters Encounter Description Practice Location Reason(s) For Visit Diagnoses Date Provider Providers Copied on Encounter PREV VISIT, NEW, AGE 18-39 [facility], [address] [facility] [place], [id number], [place] tel:[phone] [facility] Physical (chief complaint) Dietary surveillance and counselingRoutine Medical ExamRoutine Medical Exam [address]. [address], [facility] [place], [id number] , [place]. tel:[phone] Family History Family Member Type Diagnosis Age At Onset Brother Problem (finding) Alive and well Mother Problem (finding) Alive and well Father Problem (finding) Alive and well Payers Payer name Insurance type Covered democrat ID Authoriza tion(s) No Information Social History [...] Mental Status Date Cognitive Assessment Orientation - [place] ed to time, place, person, situation.
--- OUTSIDE RECORDS SUMMARY | 2024-08-28 00:04 | XMS_ITS | Referral Summary ---
Author Organization [facility] Address [address] [place] [address] Care Team Providers Care Car Cleaner Name Role Phone Can Gongora NP Primary Care Provider +1- [phone] Encounters Date Type Department Care Team Description 07/16/2024 3:00 PM CDT Office Visit [facility] [address] [place] [address] Medical Office Building [address] [address] Damir Mcguire MD Vasectomy evaluation (Primary Dx) 06/04/2024 10:00 AM WINDMILL TECHNICIAN Office Visit [facility] [address] [place] [address] [address] Damir Mcguire MD Vasectomy evaluation [...] on file Legal Sex Male 4:52 PM WINDMILL TECHNICIAN Gender Identity Not on file Sexual Orientation Not on file Plan of Treatment Not on [place] [address] [facility] [place] [address] Care Teams Car Cleaner Relationship Specialty Start Date End Date Can Gongora NP [address] [place] [address] [place] [address] PCP - General Pain Management 04/24/24
[2024-08-28] MEDS: KETOROLAC 15 MG/ML VIAL (*BKC) IV PUSH (00:09)
[2024-08-28] MEDS: HYDROmorphone HCL INJ (*CRX) 2 MG/ML VIAL 1 MG IV PUSH (00:09)
[2024-08-28 02:06] LABS: Add Urine Microscopic? NO; Appearance Urine Clear (Clear); Bilirubin Urine Negative (Negative); Blood Urine Negative (Negative); Color Urine Yellow (Yellow); Glucose Urine UA Negative (Negative); Ketones Urine Negative (Negative); Leukocyte Esterase Ur Negative LEU/UL (Negative); Nitrate Urine Negative (Negative); Protein Urine Negative (Negative); Specific Grav Ur 1.028 (1.001-1.035); Urobilinogen Urine 0.2 mg/dL (<2.0); pH Urine 6.5 (5.0-9.0)
[2024-08-28 03:11] LABS: Trichomonas Vag PCR NOT DETECTED (NOT DETECTE)
[2024-08-28 03:14] VITALS: BP 121/76; PULSE 55; RESP 14; O2SAT 98
--- NOTE | 2024-08-28 03:19 | ED_ITS ---
HPI - General Adult General Chief complaint: Urogenital-Male Stated complaint: L testicular pain Time Seen by Provider: 08/27/24 23:44 History of Present Illness HPI narrative: This is a 39-year-old male presenting ED with chief complaint of left testicle pain. He was seen here 2 days ago had a scrotal ultrasound showing possible epididymitis. No evidence of torsion at that time. He was discharged on ciprofloxacin and Milano. However he has been having increased pain and swelling in his left testicle. He has night pain radiating to his lower back and stomach. Denies fevers chills. He has had nausea without vomiting. No dysuria. Related Data Allergies Allergy/AdvReac Type Severity Reaction Status Date / Time No Known Allergies Allergy Unknown Verified 08/27/24 23:37 [facility] Past Medical History Medical History No active medical problems Social History Social History Smoking status: Never smoker Exam 2 Narrative: APPEARANCE: No apparent distress. Head: atraumatic. EYES: EOMI, NOSE: Atraumatic NECK: Trachea midline RESPIRATORY: No increased rate of breathing CARDIOVASCULAR: RRR, ABDOMINAL: Non-distended soft nontender no guarding rebound, no CVA tenderness : Left testicle is edematous and diffusely tender to palpation, MUSCULOSKELETAl: No obvious deformities NEURO: Alert. Moving 4/4 extremities SKIN:: Warm, dry. Normal color PSYCHIATRIC: Normal affect Course Vital Signs Vital signs: Vital Signs Temperature 98 F 08/27/24 23:40 Pulse Rate 66 08/27/24 23:40 Respiratory Rate 15 08/27/24 23:40 Blood Pressure 165/110 H 08/27/24 23:40 Pulse Oximetry 99 08/27/24 23:40 Temperature 98 F 08/27/24 23:40 Pulse Rate 55 L 08/28/24 03:14 Respiratory Rate 14 08/28/24 03:14 Blood Pressure 121/76 08/28/24 03:14 Pulse Oximetry 98 08/28/24 03:14 Medical Decision Making [facility] Narrative Medical decision making narrative: -Course: 39-year-old male recently diagnosed with bronchitis presenting with left testicle pain. Has been on antibiotics for about 2 and half days. He has been taking Milano intermittently but has not been taking NSAIDs. He is not having systemic signs of illness. He has not called his urologist make an appointment yet. Repeat ultrasound showed orchitis but no evidence of abscess or torsion. Patient's pain was controlled in the ED. he will be discharged with update pain regimen and instructed follow-up with his urologist. -DDX includes but is not limited to: Orchitis, epididymitis, torsion, scrotal abscess Vital Signs Vital Signs: Vital Signs Temperature 98 F 08/27/24 23:40 Pulse Rate 66 08/27/24 23:40 Respiratory Rate 15 08/27/24 23:40 Blood Pressure 165/110 H 08/27/24 23:40 Pulse Oximetry 99 08/27/24 23:40 Temperature 98 F 08/27/24 23:40 Pulse Rate 55 L 08/28/24 03:14 Respiratory Rate 14 08/28/24 03:14 Blood Pressure 121/76 08/28/24 03:14 Pulse Oximetry 98 08/28/24 03:14 Lab Data 08/28/24 03:16 08/28/24 03:16 Labs: Lab Results 08/28/24 08/28/24 Range/Units 01:19 03:16 WBC 10.6 H (4.5-10.0) K/mm3 RBC 4.50 L (4.6-6.20) M/mm3 Hgb 12.6 L (14.0-18.0) g/dL Hct 40.1 L (42.0-52.0) % MCV 89.1 (80-100) fl MCH 28.0 (26-34) pg MCHC 31.4 L (32-36) g/dl RDW 14.0 (11.5-14.5) % Plt Count 254 (150-375) k/mm3 MPV 10.4 (7.4-10.4) fl Immature Gran % (Auto) 0.5 (0-0.5) % Neut % (Auto) 70.7 (45.5-73.1) % Lymph % (Auto) 19.6 (18.3-44.2) % Stevens % (Auto) 6.8 (2.6-8.5) % Eos % (Auto) 1.9 (0-4.4) % Baso % (Auto) 0.5 (0.2-1.2) % Lymph # (Auto) 2.08 (0.9-3.2) K/mm3 Stevens # (Auto) 0.7 H (0.1-0.6) K/mm3 Eos # (Auto) 0.2 (0-0.3) K/mm3 Baso # (Auto) 0.1 (0.0-0.1) K/mm3 Abs Immat Gran (auto) 0.05 H (0.00-0.031) K/mm3 Absolute Neuts (auto) 7.5 H (1.3-6.7) K/mm3 Absolute Nucleated RBC 0.000 (0.0-0.012) K/mm3 Nucleated RBC % 0.0 (0.0-0.2) % Sodium 137 (137-145) mmol/L Potassium 4.0 (3.4-5.0) mmol/L Chloride 102 (98-107) mmol/L Carbon Dioxide 27 (22-30) mmol/L Anion Gap 8 (4-12) mmol/L BUN 19 (9-20) mg/dL Creatinine 0.85 (0.7-1.3) mg/dL Estim Creat Clear Calc 136 ml/min Estimated GFR > 60 (59 - ) Glucose 104 (65-110) mg/dL Calcium 8.9 (8.4-10.2) mg/dL Total Bilirubin 0.6 (0.2-1.3) mg/dL AST 34 (17-59) U/L ALT 39 (6-50) U/L Alkaline Phosphatase 74 (38-126) U/L Total Protein 7.0 (6.3-8.2) g/dL Albumin 4.2 (3.5-5.1) g/dL Urine Color Yellow (Yellow) Urine Appearance Clear (Clear) Urine pH 6.5 (5.0-9.0) Ur Specific [place] 1.028 (1.001-1.035) Urine Protein Negative (Negative) mg/dL Urine Glucose (UA) Negative (Negative) mg/dL Urine Ketones Negative (Negative) mg/dL Ur Blood (Man) Negative (Negative) Urine Nitrate Negative (Negative) Urine Bilirubin Negative (Negative) Urine Urobilinogen 0.2 (<2.0) mg/dL Leukocyte Esterase Rfl Negative (Negative) SALUD/UL C. trachomatis (PCR) Not detected (NOT DETECTE) N. gonorrhoeae (PCR) Not detected (NOT DETECTE) T. vaginalis (PCR) Not detected (NOT DETECTE) Discharge Plan Discharge Clinical Impression: Orchitis Patient Disposition: Home Condition: Stable Instructions: Antibiotic Form, Epididymo-Orchitis (ED) Additional Instructions: You were seen in the emergency department for testicle pain. Please use Motrin Tylenol for pain. Use Milano for breakthrough pain. Continue the Cipro. Please call your urologist 1st thing in morning to arrange follow-up in the next 24 to 48 hours. Please return to ED if you develop fevers, severe pain or any new or worsening symptoms. Patient Language: Portuguese Prescriptions: New ibuprofen 800 mg tablet 800 mg PO TID PRN (Reason: pain) 7 Days Qty: 21 0RF acetaminophen 500 mg tablet 1,000 mg PO TID PRN (Reason: cy) 7 Days Qty: 42 0RF No Action ondansetron 4 mg tablet,disintegrating 4 mg PO Q8H PRN (Reason: nausea and vomiting) Qty: 10 0RF ciprofloxacin HCl [Cipro] 500 mg tablet 500 mg PO Q12H Qty: 14 0RF hydrocodone-acetaminophen 5-325 mg tablet 1 tablet PO Q6H PRN (Reason: pain) Qty: 14 0RF Follow-up/Referrals: PHYSICIAN,CENSUS ENUMERATOR [Primary Care Provider] -
[2024-08-28 03:36] LABS: Chlamydia trachomatis NOT DETECTED (NOT DETECTE); Neisseria gonorrhoeae PCR NOT DETECTED (NOT DETECTE)
[2024-08-28 04:01] LABS: Basophils Absolute Auto 0.1 K/mm3 (0.0-0.1); Basophils Percent Auto 0.5 % (0.2-1.2); Eosinophils Absolute Auto 0.2 K/mm3 (0-0.3); Eosinophils Percent Auto 1.9 % (0-4.4); Hematocrit 40.1 % (42.0-52.0); Hemoglobin 12.6 g/dL (14.0-18.0); Immature Granulocyte Absolute 0.05 K/mm3 (0.00-0.031); Immature Granulocyte Percent A 0.5 % (0-0.5); Lymphocytes Absolute Auto 2.08 K/mm3 (0.9-3.2); Lymphocytes Percent Auto 19.6 % (18.3-44.2); Mean Corpuscular HGB Conc 31.4 g/dl (32-36); Mean Corpuscular Volume 89.1 fl (80-100); Mean Platelet Volume 10.4 fl (7.4-10.4); Monocytes Absolute Auto 0.7 K/mm3 (0.1-0.6); Monocytes Percent Auto 6.8 % (2.6-8.5); Neutrophils Absolute Auto 7.5 K/mm3 (1.3-6.7); Neutrophils Percent Auto 70.7 % (45.5-73.1); Platelet Count Result 254 k/mm3 (150-375); White Blood Count 10.6 K/mm3 (4.5-10.0)
[2024-08-28 04:15] LABS: Alanine Aminotransferase 39 U/L (6-50); Albumin Level 4.2 g/dL (3.5-5.1); Alkaline Phosphatase 74 U/L (38-126); Anion Gap 8 mmol/L (4-12); Aspartate Amino Transferase 34 U/L (17-59); Bilirubin,Total 0.6 mg/dL (0.2-1.3); Blood Urea Nitrogen 19 mg/dL (9-20); Calcium 8.9 mg/dL (8.4-10.2); Carbon Dioxide 27 mmol/L (22-30); Chloride 102 mmol/L (98-107); Estimated CRCL calculation 136 ml/min; Estimated Glomerular Filt Rate > 60; Glucose 104 mg/dL (65-110); Sodium 137 mmol/L (137-145)
[2024-08-28 04:48] VITALS: BP 110/76; PULSE 55; RESP 15; O2SAT 100
== END 2024-08-28 04:50 | disposition home or self-care (01) ==
PROVIDERS: Emergency Provider Emergency Medicine
DX: N45.2 Orchitis (principal)
CPT/HCPCS: 36415; 76870; 80053; 81003; 85025; 87491; 87591; 87661; 93976; 96374; 96375; 99284; J1171; J1885

== ENCOUNTER 2024-11-03 11:28 | Emergency (ER) | payer OTHER, SELFPAY ==
--- NOTE | ~2024-11-03 | US_ITS ---
Testicular ultrasound with doppler. Indication: Laceration. Technique: Real-time sonography the scrotum was performed. Color flow Doppler and Doppler spectral an alysis were performed. Findings: The testes are homogeneous in echotexture bilaterally. There is no evidence of an intrates ticular mass. The right testis measures 4.1 x 2.1 x 2.5 cm and the left 4.3 x 1.8 x 2.7 cm. There is color-flow seen to both testes. Arterial and venous spectral waveforms are seen in both testes. There is no sonographic evidence of torsion. The head of the epididymis is visualized bilaterally and is within normal limits. There is mild diffuse scrotal wall edema/thickening Impression: No testicular mass or torsion. Mild diffuse scrotal wall thickening/edema. Reviewed, dictated and finalized at [facility]. Impression: No testicular mass or torsion. Mild diffuse scrotal wall thickening/edema.
--- OUTSIDE RECORDS SUMMARY | 2024-11-03 11:30 | XMS_ITS | Clinical Summary ---
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 CLOTH PRESSER Gender Identity Not on file Sexual Orientation Not on file Obstetrics History Plan of Treatment Health Maintenance Due Date Last Done Comments Depression Screening 1987 Hepatitis C Screening 1987 DTaP/Tdap/Td Vaccine (1 - Tdap) 07/13/2000 1 Varicella Vaccines (2 of 2 - 2-dose childhood series) 10/04/2000 07/12/2000 Hepatitis B Screening 08/27/2005 Regular Well Visit/Exam 18-64 08/27/2005 Influenza Vaccine (Season Ended) 2024 HPV Vaccines Aged Out No longer eligi ble based on patient's age to complete this topic Pneumococcal vaccine <65 Aged Out No longer eligible based on patient's age to complete this topic [place] [address] [facility] [place] [address] Care Teams Metal Furniture Repairer Relationship Specialty Start Date End Date Can Gongora NP [address] [place] [address] [place] [address] PCP - General Pain Management 04/24/24
--- OUTSIDE RECORDS SUMMARY | 2024-11-03 11:30 | XMS_ITS | Referral Summary ---
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
--- OUTSIDE RECORDS SUMMARY | 2024-11-03 11:30 | XMS_ITS | Patient Health Record ---
Author Organization [facility] Address [address] [place] [address] Care Team Providers Care Road Cleaner Name Role Phone GongoraCan meraz Primary Care Provider Sneed Remington Santacruz [phone] Allergies No Known Allergies Results Component Value Reference Range Notes HIV Screen *HIV 1, 2 Ab, p24 Ag ([id number]) Reviewed date:12/28/2023 11:44:50 AM Interpretation: Performing Lab:[facility], [employer] [facility], Phone - [phone], Director - [facility] Notes/Report: HIV Ab/p24 Ag Screen Non Reactive Non Reactive HIV-1/HIV-2 antibodies and HIV-1 p24 antigen were NOT detected. There is no laboratory evidence of HIV infection. HIV Negative Hemoglobin A1c* Reviewed date:12/28/2023 11:44:50 AM Interpretation: Performing Lab:[facility], [employer], Phone - [phone], Director - Marli Notes/Report: Hemoglobin A1c 6.4 4.8-5.6 % . Prediabetes: 5.7 - 6.4 Diabetes: >6.4 Glycemic control for adults with diabetes: <7.0 CBC With Differential/Platel et* Reviewed date:12/28/2023 11:44:50 AM Interpretation: Performing Lab:[facility], [facility], Phone - [phone], Director - Marli Notes/Report: WBC 6.6 3.4-10.8 x10E3/uL RBC 5.32 [...] T4* Reviewed date:12/28/2023 11:44:50 AM Interpretation: Performing Lab:[facility] [address], Phone - [phone], Director - PhDGuardian Hospitalamanda Notes/Report: TSH 1.730 0.450-4.500 uIU/mL T4,Free(Direct) 1.34 0.82-1.77 ng/dL Lipid Panel* Reviewed date:12/28/2023 11:44:50 AM Interpretation: Performing Lab:[facility] [address], Phone - [phone], Director - PhDRicflaget memorial hospitalamandai Notes/Report: Cholesterol, Total 237 100-199 mg/dL Triglycerides 124 0-149 mg/dL HDL Cholesterol 80 >39 mg/dL VLDL Cholesterol Lee 21 5-40 mg/dL LDL Chol Calc ([facility]) 136 0-99 mg/dL CMP 14 Comprehensive Metabol ic Panel* Reviewed date:12/28/2023 11:44:50 AM Interpretation: Performing Lab:[facility] [address], Phone - [phone], Director - PhDRicchiamandai Notes/Report: Glucose 106 70-99 mg/dL BUN 14 [...] 0-40 IU/L ALT (SGPT) 67 0-44 IU/L Hemoglobin A1c CLIA Waived Reviewed date:03/29/2024 01:09:21 PM Interpretation: Performing Lab: Notes/Report: Hemoglobin A1c 5.9 4.0 - 6.4 % Reason For Referral Reason Would like vasectomy Diagnosis 1 Screening and evalua tion for vasectomy (Z30.09) Referral Organization [facility] Referring Provider First Name Can Referring Provider Last Name Rolan Referring Provider [facility] Referred Provider [facility] Referred Provider Specialty Urology General Notes Pt has Simi., [place] Teri sherman RN 04/06/2024 11:39:05 AM >referral faxed to [facility] at the fax number provided by [facility] liability claims representativeTalya.Kelin RN, Stephanie N 04/06/2024 01:06:38 PM >fax failed. Referral refaxed.Kelin RN, Stephanie N 04/13/2024 09:08:48 AM >Fax number updated. Referral refaxed.Kelin RN, Stephanie N 04/13/2024 09:27:30 AM >Fax was successful. Letter mailed with referral details. Clinical Notes [facility] , [address], [address], [place] [address], , New Patients: [phone], Referral Referral Priority Routine Social History Tobacco Use: Social History Observation Description Date Details (start date - stop date) Never Smoker NA - NA Sex Assigned At : Social History Observation Description Sex Assigned At Male PRAPARE Question Answer Notes Date Completed/Updated: 09/04/2024 What is your current housing situation? I have h ousing Are you worried about losing your housing? No What is the highest level of school that you have finished? 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 Stress is when someone feels tense, nervous, anxious, or can\t sleep at night because their mind is troubled Not at all In the past year have you sp ent more than 2 nights in a row in a prison, nursing home, [facility] center, or juvenile correctional facility? No Do you feel physically and e motionally safe where you currently live? No In the past year, have you b een afraid of your partner or ex-partner? No PRAPARE Score: 5 Tobacco Control (Standard) Question Answer Notes Tobacco use: Nonsmoker Problems Problem Type SNOMED Code ICD Code Onset Dates Problem Status W/U Status Risk Notes Problem Obesity (911705408) Obesity (BMI 30-39.9) (E66.9) Active confirmed Vital Signs Heart Rate 67 /min 03/27/2024 Respiratory Rate 16 /min 03/27/2024 Blood pressure diastolic 70 mm Hg 03/27/2024 Oximetry 97 % 03/27/2024 Height 71 in 03/27/2024 Blood pressure systolic 128 mm Hg 03/27/2024 Weight 257 lbs 03/27/2024 BMI 35.84 kg/m2 03/27/2024 Encounters Encounter Location Date Provider Diagnosis [address] [address] 12/22/2023 Can Gongora Screening for HIV (human immunodeficiency virus) Z11.4 ; Screening for metabolic disorder Z13.228 ; Screening for deficiency anemia Z13.0 and Lipid screening Z13.[address] [address] 12/15/2023 Can Gongora Encounter to [facility] Z76.89 ; Screening for deficiency anemia Z13.0 ; Screening for metabolic disorder Z13.228 ; Screening for HIV (human immunodeficiency virus) Z11.4 ; Lipid screening Z13.220 ; Obesity (BMI 30-39.9) E66.9 and Nutritional counseling Z71.[address] [address] 12/22/2023 Can Gongora [address] [address] 03/27/2024 Can Gongora Screening and evaluation for vasectomy Z30.09 ; Prediabetes R73.03 ; Obesity (BMI 30-39.9) E66.9 and Nutritional counseling Z71.[address] [address] 03/27/2024 Can Gongora [address] [address] 04/27/2024 Can Gongora [address] [address] 07/12/2024 Remington Sneed [address] [address] 08/08/2024 Remington Sneed [address] [address] 09/05/2024 Remington Sneed Assessments Encounter Date Diagnosis (ICD [...] Date MEDICAID [address] [place] [address] [id number] Cj Massey Self - patient is the insured
--- OUTSIDE RECORDS SUMMARY | 2024-11-03 11:30 | XMS_ITS | Continuity of Care Document ---
Author Organization [facility] Address [address] [place] [address] [place] [address] Phone Care Team Providers Care Service Representative Name Role Phone Felix Jo MD Unavailable Unavailable Allergies, Adverse Reactions, Alerts Substance Reaction Status Criticality No Known Allergies Active No Inform ation Procedures Procedure Date PREV VISIT, NEW, AGE 18-39 Advance Directives Directive Yes / No Effective Date File Name No Information Encounters Encounter Description Practice Location Reason(s) For Visit Diagnoses Date Provider Providers Copied on Encounter PREV VISIT, NEW, AGE 18-39 [facility], [address] [facility] [place], [id number], [place] tel:[phone] [facility] Physical (chief complaint) Dietary surveillance and counselingRoutine Medical ExamRoutine Medical Exam [address]. [address], [facility] [place], [id number] , [place]. tel:[phone] Family History Family Member Type Diagnosis Age [...] Mental Status Date Cognitive Assessment Orientation - [place] ed to time, place, person, situation.
[2024-11-03 11:48] VITALS: BP 125/73; PULSE 85; RESP 20; TEMP 36.5; O2SAT 98
--- OUTSIDE RECORDS SUMMARY | 2024-11-03 12:31 | XMS_ITS | Referral Summary ---
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
--- OUTSIDE RECORDS SUMMARY | 2024-11-03 12:31 | XMS_ITS | Continuity of Care Document ---
Author Organization [facility] Address [address] [place] [address] [place] [address] Phone Care Team Providers Care Rheumatology Nurse Name Role Phone Felix Jo MD Unavailable Unavailable Allergies, Adverse Reactions, Alerts Substance Reaction Status Criticality No Known Allergies Active No Inform ation Procedures Procedure Date PREV VISIT, NEW, AGE 18-39 Advance Directives Directive Yes / No Effective Date File Name No Information Encounters Encounter Description Practice Location Reason(s) For Visit Diagnoses Date Provider Providers Copied on Encounter PREV VISIT, NEW, AGE 18-39 [facility], [address] [facility] [place], [place], [id number], [place] tel:[phone] [facility] Physical (chief complaint) Dietary surveillance and counselingRoutine Medical ExamRoutine Medical Exam [address]. [address], [facility] [place], [id number] , [place]. tel:[phone] Family History Family Member Type Diagnosis Age At Onset Brother Problem (finding) Alive and well Mother Problem (finding) Alive and well Father Problem (finding) Alive and well Payers Payer name Insurance type Covered constitution party ID Authoriza tion(s) No Information Social [...] Mental Status Date Cognitive Assessment Orientation - [place] ed to time, place, person, situation.
--- OUTSIDE RECORDS SUMMARY | 2024-11-03 12:31 | XMS_ITS | Clinical Summary ---
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
--- NOTE | 2024-11-03 12:40 | ED.GENADULT ---
HPI - General Adult General Chief complaint: Wound/Laceration Stated complaint: pain in groin area Time Seen by Provider: 11/03/24 12:08 History of Present Illness HPI narrative: This is a 39-year-old male presenting with a scrotal laceration. Since jumping over a chain-link fence when it caught on his scrotum causing a tear in his scrotum. No protrusion of his testicle. No other injuries. Unknown last tetanus. Related Data Allergies Allergy/AdvReac Type Severity Reaction Status Date / Time No Known Allergies Allergy Unknown Verified 11/03/24 11:49 [facility] Past Medical History Medical History No active medical problems Social History Social History Smoking status: Never smoker Exam Narrative: APPEARANCE: No apparent distress. Head: atraumatic. EYES: EOMI, NOSE: Atraumatic NECK: Trachea midline RESPIRATORY: No increased rate of breathing clear to auscultation CARDIOVASCULAR: RRR, no peripheral edema ABDOMINAL: Non-distended soft nontender : 4 cm scrotal laceration. No protrusion of the testicles MUSCULOSKELETAl: No obvious deformities NEURO: Alert. Moving 4/4 extremities SKIN:: Warm, dry. Normal color PSYCHIATRIC: Normal affect Course Vital Signs Vital signs: Vital Signs Temperature 97.7 F 11/03/24 11:48 Pulse Rate 85 11/03/24 11:48 Respiratory Rate 11/03/24 11:48 Blood Pressure 125/73 11/03/24 11:48 Pulse Oximetry 98 11/03/24 11:48 Oxygen Delivery Room Air 11/03/24 11:48 Temperature 97.7 F 11/03/24 11:48 Pulse Rate 85 11/03/24 11:48 Respiratory Rate 11/03/24 11:48 Blood Pressure 125/73 11/03/24 11:48 Pulse Oximetry 98 11/03/24 11:48 Oxygen Delivery Room Air 11/03/24 11:48 Procedures Laceration Laceration 1: Date: 11/03/24 Site: scrotum Side (If applicable): right Size (cm): 4 Description: linear Depth: simple, single layer Local Anesthetic: bupivacaine 0.25% Amount of anesthesia used (mL): 10 Pre-repair: wound explored, irrigated extensively and deep structures intact ====== Skin Level ====== Skin layer closed with: other (Chromic gut) Size (cm): 5-0 Number of sutures: 8 Technique: simple, interrupted ====== Subcutaneous Layer ====== ====== Muscle Layer ====== ====== Tendon Layer ====== Medical Decision Making MDM Narrative Medical decision making narrative: -Course: 39-year-old male presenting scrotal laceration. Patient given Ancef, Tdap pain medication. Scrotal ultrasound ordered to evaluate for testicular injury. Urology consulted. Recommended repair using chromic gut which was performed. Ultrasound did not show any injury to the testicles themselves. Patient will be discharged with urology f/u. -DDX includes but is not limited to: Scrotal laceration, testicular injury Vital Signs Vital Signs: Vital Signs Temperature 97.7 F 11/03/24 11:48 Pulse Rate 85 11/03/24 11:48 Respiratory Rate 20 11/03/24 11:48 Blood Pressure 125/73 11/03/24 11:48 Pulse Oximetry 98 11/03/24 11:48 Oxygen Delivery Room Air 11/03/24 11:48 Temperature 97.7 F 11/03/24 11:48 Pulse Rate 85 11/03/24 11:48 Respiratory Rate 20 11/03/24 11:48 Blood Pressure 125/73 11/03/24 11:48 Pulse Oximetry 98 11/03/24 11:48 Oxygen Delivery Room Air 11/03/24 11:48 Discharge Plan Discharge Clinical Impression: Laceration Patient Disposition: Home Condition: Stable Instructions: Antibiotic Form, Care For Your Stitches (ED) Additional Instructions: You were seen in the emergency department for a scrotum laceration. It was repaired using dissolvable sutures. Please continue taking Motrin, Tylenol as needed for pain. Complete a course of antibiotics. Please follow-up with the neurologist listed below in 10-14 days for a wound check. If you develop signs of infection like increased pain swelling purulent discharge fevers return to ED for re-evaluation. Patient Language: Macedonian Prescriptions: New ibuprofen 800 mg tablet 800 mg PO TID PRN (Reason: pain) 7 Days Qty: 21 0RF acetaminophen 500 mg tablet 1,000 mg PO TID PRN (Reason: cy) 7 Days Qty: 42 0RF cephalexin 500 mg capsule 500 mg PO Q12H Qty: 14 0RF No Action ondansetron 4 mg tablet,disintegrating 4 mg PO Q8H PRN (Reason: nausea and vomiting) Qty: 10 0RF ciprofloxacin HCl [Cipro] 500 mg tablet 500 mg PO Q12H Qty: 14 0RF hydrocodone-acetaminophen 5-325 mg tablet 1 tablet PO Q6H PRN (Reason: pain) Qty: 14 0RF ibuprofen 800 mg tablet 800 mg PO TID PRN (Reason: pain) 7 Days Qty: 21 0RF acetaminophen 500 mg tablet 1,000 mg PO TID PRN (Reason: cy) 7 Days Qty: 42 0RF Follow-up/Referrals: Alfa Holbrook MD [Physician] - 1 Week (Scrotal laceration ) UNKNOWN,DOCTOR [Primary Care Provider] -
[2024-11-03] MEDS: HYDROmorphone HCL INJ (*CRX) 2 MG/ML VIAL 1 MG IV PUSH (13:17)
[2024-11-03] MEDS: TETANUS,DIPHTHERIA,AC PERTUSSIS ADULT (0.5 ML) BOOSTRIX IM (13:24)
[2024-11-03] MEDS: WATER, STERILE FOR INJECTION 10 ML VIAL XX (13:54)
[2024-11-03 16:05] VITALS: BP 134/73; PULSE 70; RESP 16; O2SAT 99
== END 2024-11-03 16:10 | disposition home or self-care (01) ==
PROVIDERS: Emergency Provider Emergency Medicine
DX: S31.31XA Laceration without foreign body of scrotum and testes, initial encounter (principal); Z23 Encounter for immunization; W26.8XXA Contact with other sharp object(s), not elsewhere classified, initial encounter
CPT/HCPCS: 12002; 76870; 90471; 90715; 93976; 96372; 96374; 99284; J0690; J1171